=== PATIENT | female | born 1950 | race Caucasian/White ===

== ENCOUNTER 2019-12-28 14:58 | Outpatient (CLI) | payer OTHER, SELFPAY ==
[2019-12-28 17:09] LABS: Add Urine Microscopic? YES; Appearance Urine Clear (Clear); Bacteria Urine Trace /hpf; Bilirubin Urine Negative (Negative); Blood Urine Negative (Negative); Color Urine Yellow (Yellow); Glucose Urine UA Negative (Negative); Ketones Urine 1+ mg/dL (Negative); Leukocyte Esterase Ur 1+ LEU/UL (Negative); Mucus Urine Moderate /lpf; Nitrate Urine Negative (Negative); Protein Urine Negative (Negative); RBC Urine 0-2 /hpf (0-2); Specific Grav Ur 1.019 (1.001-1.035); Squamous Epithelial Cell Urine Rare /hpf (Few)
[2019-12-28 17:23] LABS: Basophils Percent Auto 0.4 % (0.2-1.2); Eosinophils Percent Auto 0.2 % (0-4.4); Hematocrit 39.6 % (37.0-47.0); Hemoglobin 12.6 g/dL (12.0-15.0); Immature Granulocyte Absolute 0.03 K/mm3 (0.00-0.031); Immature Granulocyte Percent A 0.4 % (0-0.5); Lymphocytes Absolute Auto 0.69 K/mm3 (0.9-3.2); Lymphocytes Percent Auto 8.6 % (18.3-44.2); Mean Corpuscular HGB Conc 31.8 g/dl (32-36); Mean Corpuscular Hemoglobin 28.5 pg (26-34); Mean Corpuscular Volume 89.6 fl (80-100); Mean Platelet Volume 12.6 fl (7.4-10.4); Monocytes Absolute Auto 0.5 K/mm3 (0.1-0.6); Monocytes Percent Auto 6.6 % (2.6-8.5); Neutrophils Absolute Auto 6.7 K/mm3 (1.3-6.7); Neutrophils Percent Auto 83.8 % (45.5-73.1); Platelet Count Result 195 k/mm3 (150-375); Red Blood Count 4.42 M/mm3 (4.2-5.4); Red Cell Distribution Width 15.1 % (11.5-14.5)
[2019-12-28 17:39] LABS: Alanine Aminotransferase 12 U/L (4-35); Albumin Level 4.4 g/dL (3.5-5.1); Alkaline Phosphatase 84 U/L (38-126); Aspartate Amino Transferase 22 U/L (14-36); Bilirubin,Total 0.7 mg/dL (0.2-1.3); Blood Urea Nitrogen 21 mg/dL (7-17); Calcium 9.5 mg/dL (8.4-10.2); Carbon Dioxide 26 mmol/L (22-30); Chloride 99 mmol/L (98-107); Estimated Glomerular Filt Rate > 60; Glucose 90 mg/dL (65-105); Magnesium 1.8 mg/dL (1.6-2.3); Potassium 4.1 mmol/L (3.4-5.0); Sodium 140 mmol/L (137-145)
[2019-12-28 18:24] LABS: Free T4 Free Thyroxine 1.45 ng/mL (0.78-2.19); Vitamin D 25 Hydroxy 82.4 ng/mL
[2019-12-28 18:42] LABS: Folic Acid 8.4 ng/mL (2.76->20)
[2020-01-02 03:17] LABS: Insulin Level Total 1.8 uIU/mL (<=19.6)
== END 2019-12-28 14:59 | disposition home or self-care (01) ==
DX: R09.89 Other specified symptoms and signs involving the circulatory and respiratory systems (principal); K90.9 Intestinal malabsorption, unspecified
CPT/HCPCS: 36415; 80053; 81001; 82306; 82607; 82746; 83525; 83735; 84439; 84443; 85025; 87086

== ENCOUNTER 2021-08-10 16:38 | Observation (INO) | payer OTHER, SELFPAY ==
--- NOTE | ~2021-08-10 | XR_ITS ---
EXAMINATION: XR chest 1V portable INDICATION: Shortness of breath TECHNIQUE: Portable AP chest at 1821 hours COMPARISON: 01/13/2013 FINDINGS: The lungs are free of acute opacities. There is no pleural effusion or pneumothorax. The ca rdiomediastinal silhouette is normal. A large volume of colonic stool is present. IMPRESSION: 1. No acute cardiopulmonary abnormality. Reviewed, dictated and finalized at location F. CARRIER
--- NOTE | ~2021-08-10 | CT_ITS ---
EXAMINATION: CT abdomen pelvis w con INDICATION: Abdominal pain TECHNIQUE: Computed tomographic images of the abdomen and pelvis were obtained after the administrati on of 100 cc of Omnipaque 350 intravenous contrast. The dose-length product (DLP) was 258.03 mGy-cm. Automated exposure control and iterative reconstruction technique were employed. COMPARISON: 07/21/2014 FINDINGS: Minimal dependent atelectasis is present in the lung bases. The heart size is normal. The l iver, spleen, pancreas, and adrenal glands are normal. The gallbladder is decompressed. There is a 3 mm nonobstructing stone of the right kidney. The left kidney is unremarkable. No pathologically enlar ged abdominal or pelvic lymph nodes are identified. There is a large volume of colonic stool distendi ng the entire colon. There is mild rectal wall thickening with edematous stranding of the adjacent pe rirectal fat. No free intraperitoneal gas is identified. There are bilateral L5 pars defects with gra de 1 anterolisthesis of L5 on S1. IMPRESSION: 1. Severe constipation. 2. Possible stercoral colitis of the rectum. Reviewed, dictated and finalized at location F. E PRESS OPERATOR
[2021-08-10 16:42] VITALS: BP 129/86; PULSE 90; RESP 16; TEMP 37.1; O2SAT 100
--- NOTE | 2021-08-10 16:52 | PC.NURSE ---
Patient's gave television script writer his cell phone to talk to patient's son, who is her caregiver. Patient's son Justino reported that the patient tries to convince people she is dying anytime he leaves or when she talks to her mother. Justino reported patient has bad anxiety and always states she can't breathe. Justino reports patient's oxygen saturations are never low when she says she can't breathe. Patient son also reported that when she talks to her mother, her mother convinces her that she needs to go to the hospital to be seen. Patient's oxygen saturations are 100% on room air and patient is able to speak in full, complete sentences. Patient shows no increased work of breathing. Nuclear Instructor informed, ADRIENNE Coombs of the information her son gave. Patient's son's phone number is [phone], Justino Ring
--- NOTE | 2021-08-10 17:58 | PC.NURSE ---
Pt states she has a little pain in her stomach and loses her breath when she lays down.
--- NOTE | 2021-08-10 18:13 | ECG_ITS ---
Measurements Intervals [place] Rate: 64 P: 60 WV: 133 QRS: -3 QRSD: 97 T: 50 QT: 398 QTc: 413 Interpretive Statements SINUS RHYTHM CONSIDER INFERIOR INFARCT, AGE INDETERMINATE BASELINE ARTIFACT- I, II, III, AVR, AVL, AVF, V1-V6 ABNORMAL ECG Electronically Signed On 08-10-2021 20:30:41 DOBIE MAN by Khalif Montalvo D.O.
[2021-08-10] MEDS: FAMOTIDINE 20 MG TABLET PO (18:26)
[2021-08-10 18:39] LABS: Basophils Percent Auto 0.4 % (0.2-1.2); Eosinophils Absolute Auto 0.1 K/mm3 (0-0.3); Eosinophils Percent Auto 1.2 % (0-4.4); Hematocrit 37.5 % (37.0-47.0); Hemoglobin 11.6 g/dL (12.0-15.0); Immature Granulocyte Absolute 0.03 K/mm3 (0.00-0.031); Immature Granulocyte Percent A 0.4 % (0-0.5); Lymphocytes Absolute Auto 1.75 K/mm3 (0.9-3.2); Lymphocytes Percent Auto 25.4 % (18.3-44.2); Mean Corpuscular HGB Conc 30.9 g/dl (32-36); Mean Corpuscular Hemoglobin 28.3 pg (26-34); Mean Corpuscular Volume 91.5 fl (80-100); Mean Platelet Volume 10.4 fl (7.4-10.4); Monocytes Absolute Auto 0.5 K/mm3 (0.1-0.6); Monocytes Percent Auto 6.5 % (2.6-8.5); Neutrophils Absolute Auto 4.6 K/mm3 (1.3-6.7); Neutrophils Percent Auto 66.1 % (45.5-73.1); Platelet Count Result 366 k/mm3 (150-375); Red Cell Distribution Width 15.2 % (11.5-14.5); White Blood Count 6.9 K/mm3 (4.5-10.0)
--- NOTE | 2021-08-10 18:52 | ED.GENADULT ---
HPI - General Adult General Chief complaint: Abdominal Pain Stated complaint: chills Time Seen by Provider: 08/10/21 16:52 Source: patient and family Mode of arrival: ambulatory Limitations: no limitations History of Present Illness HPI narrative: Pt presents for evaluation of abdominal pain. She and her , with whom she is with in the ED [facility], are extremely poor historians. Pt states she has a burning sensation in her abdomen. She cannot provide me with the duration of time with which she has experienced symptoms. She denies any nausea or vomiting. She has some chronic urinary incontinence, unchanged from her baseline. She states [facility] iboi-bxa-wutwyog inside of the body which is different from on the skin . She cannot tell me how long she has experienced these symptoms. She is currently on gabapentin and cannot tell me whether that medication has made much difference in the symptoms. She informs me that she feels SOB when laying down. She denies any cough, chest pain, fever or chills. Neither she nor her can provide me with much additional relevant information. Nursing staff spoke with pt's son via phone. Nursing staff inform me that he is patient's physical therapist and he keeps a close eye on her at home. Apparently when he leaves their place of residence, pt's anxiety increases and she requests medical examination. He states that patient will say she has difficulty breathing when she is anxious. This is not a new symptom for her. Related Data Home Medications Medication Instructions Recorded Confirmed atorvastatin 10 mg PO DAILY 08/10/21 08/10/21 diazepam 08/10/21 08/10/21 gabapentin 08/10/21 haloperidol 08/10/21 levothyroxine 08/10/21 mirtazapine mg 08/10/21 pantoprazole PO 08/10/21 quetiapine 08/10/21 venlafaxine mg 08/10/21 Allergies Allergy/AdvReac Type Severity Reaction Status Date / Time No Known Drug Allergies Allergy Mild Verified 11/28/14 11:51 Review of Systems Review of Systems: CONSTITUTIONAL: Denies fever, chills, or sweats. EYES: Denies visual changes, redness, or discharge. ENT: Denies rhinorrhea, congestion, sore throat, or otalgia. CARDIOVASCULAR: Denies chest pain, palpitations, or edema. RESPIRATORY: Reports SOB. Denies cough GASTROINTESTINAL: Reports burning sensation in abdomen. Denies nausea, vomiting, or diarrhea. GENITOURINARY: Reports episodes of urinary incontinence. Denies dysuria or hematuria. SKIN: Denies rash or itching. MUSCULOSKELETAL: Denies back pain, joint pain, or myalgia. NEUROLOGIC: Denies headache, numbness, dizziness, or weakness. PSYCHIATRIC: Denies anxiety or depression. PENDING SALE TO [facility] Past Medical History Medical History (Updated 08/10/21 @ 20:08 by АНДРЕЙ Lucero, ) Anxiety and depression History of heart attack History of kidney stones HLD (hyperlipidemia) Hypothyroidism Migraines Surgical History Surgical History History of tubal ligation Family History Family History Other Diabetes mellitus Family history of malignant neoplasm Family history of mental disorder Social History Social History Smoking status: Never smoker Alcohol intake: current Living arrangements: with family Gender identity (if verbalized by the patient): Female Sexual Orientation (if Verbalized by the Patient): Straight or Heterosexual Spiritual care concerns: No Exam Narrative: GENERAL: Well-appearing, well-nourished, and in no acute distress. HEAD: Normocephalic, atraumatic. EYES: PERRLA and EOMI. ENT: Nares clear, no rhinorrhea or epistaxis. Mucous membranes moist. Oropharynx without tonsillar hypertrophy exudate or other lesions. Bilateral TMs pearly lerner nonbulging NECK: Supple. No adenopathy or masses. No car
[2021-08-10 18:53] LABS: Alanine Aminotransferase 40 U/L (4-35); Alkaline Phosphatase 54 U/L (38-126); Anion Gap 6 mmol/L (8-16); Aspartate Amino Transferase 42 U/L (14-36); Bilirubin,Total 0.4 mg/dL (0.2-1.3); Blood Urea Nitrogen 16 mg/dL (7-17); Calcium 9.7 mg/dL (8.4-10.2); Carbon Dioxide 31 mmol/L (22-30); Chloride 103 mmol/L (98-107); Estimated CRCL calculation 49 ml/min; Estimated Glomerular Filt Rate > 60; Glucose 99 mg/dL (65-110); Lipase 79 U/L (23-300); Potassium 4.4 mmol/L (3.4-5.0); Sodium 140 mmol/L (137-145)
[2021-08-10 19:03] LABS: Troponin I < 0.012 ng/mL (0.000-0.034)
[2021-08-10 19:54] VITALS: BP 125/86; PULSE 96; RESP 18; O2SAT 99
--- NOTE | 2021-08-10 19:54 | PC.NURSE ---
pt cleansed of urinary and bowel incontinence. When asked about last BM at bedside states she went a lot two days ago. Pt is unable to recall.
[2021-08-10 20:03] LABS: Add Urine Microscopic? YES; Appearance Urine Cloudy (Clear); Bacteria Urine Trace /hpf; Bilirubin Urine Negative (Negative); Blood Urine 2+ (Negative); Color Urine Yellow (Yellow); Glucose Urine UA Negative (Negative); Ketones Urine Negative (Negative); Leukocyte Esterase Ur 3+ LEU/UL (Negative); Mucus Urine Rare /lpf; Nitrate Urine Negative (Negative); Protein Urine Negative (Negative); Urobilinogen Urine Negative mg/dL (<2.0); WBC Clumps Urine Present /HPF; WBC Urine >75 /hpf
[2021-08-10 20:04] LABS: Specific Grav Ur 1.036 (1.001-1.035)
[2021-08-10] MEDS: polyethylene glycoL 3350 17 GM POWD.PACK PO (20:10)
[2021-08-10 20:34] VITALS: BP 112/73; PULSE 70; RESP 18; O2SAT 98
[2021-08-10] MEDS: SODIUM CHLORIDE 0.9% IV 1,000 ML 125 ML IV CONT (20:51)
--- NOTE | 2021-08-10 21:06 | PM.IMHP ---
H&P: HPI History of Present Illness Date/Time: 08/10/21 21:06 Chief Complaint: Abdominal pain Narrative: 71-year-old female with past medical history of hypothyroidism, bipolar depression, anxiety, hyperlipidemia and GERD who presented to the ER with worsening burning and tingling pain over body and abdominal pain. I am assuming the patient has bipolar depression with psychosis given the medications she is on. However patient is quite confused. She is only alert oriented to person and the fact that she is in the hospital. She thinks the month is June and cannot give me the year. She thinks that she is at [facility]. She does know the name of the current president. She cannot tell me exactly why she came to the ER. The patient's was at bedside is also quite a poor historian and the patient's son was contacted by ER staff and could not provide much information. Evidently the patient and her live at home with her son as the patient's primary caregiver. That the patient has been in the wheelchair for at least 2 years since she was hospitalized at [facility]. Evidently during the hospitalization she almost twice but he cannot give me any details as to how she almost or what her actual diagnosis was. But he reports that the patient's legs have been stiff in that her feet have been inverted since that time. Patient has noticed spasticity of her upper extremities as well. From what I can tell the patient likely has a diagnosis of neuropathy and has sensation of pins and needle sensation all over body that is unchanged from baseline. However today see started complaining of a pins and needle sensation from the inside. She also was complaining of some abdominal pain but when I asked her what her symptoms or on presentation she did not mention abdominal pain. However, when I palpated her abdomen she stated that was part of why she came to the hospital. The patient's reports that the patient will usually leak a mushy stool when she is in her shower chair at home. She usually will leak a small amount every 3 days. He reports that a few days ago she passed a moderate-sized hard ball of stool. Evidently his, a week or so before that she had passed a markedly large ball of stool. She does not take any stool softeners at home but is evidently on some fiber tablets. Evidently during 1 of the patient's prior hospitalizations she had a colonoscopy but it was not a complete colonoscopy due to stool load. It sounds as if they may have tried to repeat the procedure after repeat prep and was still unsuccessful. Her reported the patient had some sort of scope where they found ulcers but is unclear if this was an EGD or colonoscopy. At the time of my evaluation patient was repetitively stating that she could not breathe. Her reports that she routinely says she cannot breathe. The patient's son reported to nursing staff that the patient becomes quite anxious any time she has to leave the home and panics and has trouble breathing. He evidently reported that the patient was not having difficulty breathing at home and was not vocalizing this. She has not had any cough or congestion. She has not had any fevers or chills. She has chronic urinary incontinence. On arrival to the medical floor the patient was quite anxious. Evidently any time the patient leaves home she becomes markedly anxious and reports difficulty breathing she was also demonstrating paranoia and was refusing oral cares she thought the nursing staff was trying to poison her. Review of Systems Review of Systems: 12 systems were reviewed with pertinent positives and negatives per HPI. Except as documented in the HPI, all other systems were reviewed and are negative. But, unfortunately patient has a poor historian and review of systems is unreliable. [facility] Past Medical History Medical History (Updated 08/10/21 @ 21:09 by Jackie Laureano
[2021-08-10 21:13] LABS: SARS-CoV-2 RNA PCR Negative
[2021-08-10 22:00] VITALS: BP 105/69; PULSE 80; RESP 17; TEMP 36.4; O2SAT 100
--- NOTE | 2021-08-10 22:00 | ADMGEN ---
This patient, Evelyn Ring, was admitted to Medical Room 244-. Patient/family oriented to hospital policies and general routines including ID bracelet, bed and alarms, visiting hours, pain management, procedures, bathroom and other care routines, personal items, smoking policy, room service/diet, and visiting hours. Information on how to activate the Rapid Response Team has been discussed. Patient/Family are encouraged to report perceived risks to care and to ask questions if they do not understand what they are told or what they should do.
[2021-08-10 22:18] VITALS: BMI 17.6
[2021-08-11] VITALS (8 sets, daily range): BP systolic 110–130; BP diastolic 56–76; PULSE 64–78; RESP 14–18; TEMP 35.9–36.7; O2SAT 93–100
[2021-08-11] MEDS: diazePAM (*CRX) 5 MG TABLET 10 MG PO ×2 (02:03→22:13)
[2021-08-11] MEDS: HALOPERIDOL 1 MG TABLET PO ×3 (02:21→17:29)
[2021-08-11] MEDS: MIRTAZAPINE 30 MG TABLET PO ×2 (02:22→22:13)
[2021-08-11] MEDS: VENLAFAXINE HCL 75 MG TABLET BY MOUTH ×4 (02:22→17:29)
[2021-08-11] MEDS: GABAPENTIN 300 MG CAPSULE PO ×4 (02:23→17:29)
[2021-08-11] MEDS: VENLAFAXINE HCL 25 MG TABLET PO ×4 (02:23→17:30)
[2021-08-11] MEDS: SODIUM CHLORIDE 0.9% IV 1,000 ML 125 ML IV CONT ×2 (05:35→13:46)
[2021-08-11] MEDS: LEVOTHYROXINE SODIUM 75 MCG TABLET PO (05:35)
[2021-08-11] MEDS: ONDANSETRON INJ 4 MG/2 ML VIAL IV PUSH (05:35)
[2021-08-11 06:15] LABS: Basophils Percent Auto 0.9 % (0.2-1.2); Eosinophils Absolute Auto 0.1 K/mm3 (0-0.3); Eosinophils Percent Auto 2.1 % (0-4.4); Hematocrit 34.1 % (37.0-47.0); Hemoglobin 10.6 g/dL (12.0-15.0); Immature Granulocyte Absolute 0.02 K/mm3 (0.00-0.031); Immature Granulocyte Percent A 0.4 % (0-0.5); Lymphocytes Absolute Auto 1.78 K/mm3 (0.9-3.2); Lymphocytes Percent Auto 38.2 % (18.3-44.2); Mean Corpuscular HGB Conc 31.1 g/dl (32-36); Mean Corpuscular Hemoglobin 28.3 pg (26-34); Mean Corpuscular Volume 90.9 fl (80-100); Monocytes Absolute Auto 0.4 K/mm3 (0.1-0.6); Monocytes Percent Auto 8.6 % (2.6-8.5); Neutrophils Absolute Auto 2.3 K/mm3 (1.3-6.7); Neutrophils Percent Auto 49.8 % (45.5-73.1); Platelet Count Result 306 k/mm3 (150-375); Red Blood Count 3.75 M/mm3 (4.2-5.4); Red Cell Distribution Width 15.2 % (11.5-14.5); White Blood Count 4.7 K/mm3 (4.5-10.0)
[2021-08-11 06:24] LABS: Anion Gap 5 mmol/L (8-16); Blood Urea Nitrogen 12 mg/dL (7-17); Calcium 7.1 mg/dL (8.4-10.2); Carbon Dioxide 25 mmol/L (22-30); Chloride 112 mmol/L (98-107); Estimated CRCL calculation 52 ml/min; Estimated Glomerular Filt Rate > 60; Glucose 79 mg/dL (65-110); Potassium 3.4 mmol/L (3.4-5.0); Sodium 142 mmol/L (137-145)
[2021-08-11] MEDS: calcium polycarbophiL 625 MG TABLET 1250 MG PO ×2 (09:44→17:29)
[2021-08-11] MEDS: MIRTAZAPINE 15 MG TABLET PO (09:45)
[2021-08-11] MEDS: PANTOPRAZOLE 40 MG TABLET PO (09:45)
[2021-08-11] MEDS: ATORVASTATIN 10 MG TABLET PO (09:46)
[2021-08-11] MEDS: QUEtiapine FUMARATE 100 MG TABLET 300 MG PO (09:46)
[2021-08-11] MEDS: polyethylene glycoL 3350 17 GM POWD.PACK PO (09:46)
[2021-08-11] MEDS: ENOXAPARIN 40 MG/0.4 ML SYRINGE SUB-Q (09:47)
[2021-08-11] MEDS: diazePAM (*CRX) 5 MG TABLET PO ×3 (10:00→17:29)
--- NOTE | 2021-08-11 11:06 | PM.IMPN ---
Progress Note: A&P Assessment and Plan (1) Fecal impaction: Code(s): K56.41 - Fecal impaction Status: Acute Assessment and Plan: CT shows large volume of colonic stool distending the entire colon with rectal wall thickening Soapsuds enema administered on presentation She has had small stool output but so far nothing significant Continue with Miralax BID Add dulcolax suppository Repeat soapsuds enema Monitor stool output Clear liquid diet (2) Stercoral colitis: Code(s): K52.89 - Other specified noninfective gastroenteritis and colitis Status: Acute Assessment and Plan: CT suggests rectal wall thickening with edematous stranding, possible stercoral colitis of the rectum Plan as above (3) Bacteriuria with pyuria: Code(s): R82.71 - Bacteriuria; R82.81 - Pyuria Status: Acute Assessment and Plan: Patient denies symptoms Urine cultures pending Continue IV Rocephin while awaiting results and tailor antibiotics accordingly Subjective Date/time seen: 08/11/21 11:06 Interval history: Date of service: 08/11/2021 Evelyn Ring is a 71-year-old female with a history of CAD, hyperlipidemia, hypothyroidism, osteoporosis who is seen in follow-up for fecal impaction. She is doing okay today. She is a poor historian. She can state her name. She knows she is in the hospital but does not know the name of the hospital, thinks she is in [place] states the year is 220, cannot state the month. She states she needs to go to the bathroom. She denies abdominal pain. She cannot state if she has had a bowel movement. Denies nausea or vomiting. She has not had anything to eat. She denies shortness of breath, cough, chest pain, dizziness, lightheadedness. Spoke with her ORDER PULLER reports that she has had no stool output today. Last night had minimal stool output nothing significant. Review of Systems Review of Systems: All systems reviewed & are unremarkable except as noted in HPI and below Exam Narrative: General: Well-nourished, chronically ill-appearing 71 year-old female, lying supine in bed in contracted position, appears comfortable, NARD Neuro: awake, alert and oriented x2, able to follow commands and identify simple objects, speech clear, upper and lower extremities are contracted with her legs firmly crossed, bilateral meter tester polyphase strength equal HEENMT: normocephalic, atraumatic, EOMI, sclerae anicteric Respiratory: clear to auscultation bilaterally, nonlabored breathing Cardio: regular rate, regular rhythm with S1-S2 Abdomen: nondistended, normoactive bowel sounds, soft, nontender to palpation : Wearing depends Extremities: no edema, erythema, or tenderness to palpation, able to wiggle toes bilaterally, DP pulses 2+ bilaterally Skin: no rashes or lesions, warm and dry Psych: appropriate mood and affect, judgment and insight fair Objective Data Vital Signs Vital Signs: Vital Signs - 24 hr 08/10/21 16:42 08/10/21 19:54 08/10/21 20:34 Temperature 98.7 F Pulse Rate 90 96 70 Respiratory Rate 16 18 18 Blood Pressure 129/86 125/86 112/73 Pulse Oximetry 100 99 98 08/10/21 22:00 08/11/21 01:00 08/11/21 04:00 Temperature 97.5 F L 97.7 F 97.5 F L Pulse Rate 80 68 78 Respiratory Rate 17 16 17 Blood Pressure 105/69 123/72 130/76 Pulse Oximetry 100 98 96 08/11/21 06:00 08/11/21 10:25 Temperature 97.5 F L 98.1 F Pulse Rate 78 73 Respiratory Rate 17 14 Blood Pressure 130/76 112/64 Pulse Oximetry 96 94 Intake/Output Intake/Output: Intake & Output 08/08/21 08/09/21 08/10/21 08/11/21 23:59 23:59 23:59 23:59 Intake Total 50 1200 Balance 50 1200 Meds/Results Medications: Active Medications Generic Name Dose Route Start Last Admin Trade Name Freq PRN Reason Stop Dose Admin Atorvastatin Calcium 10 mg 08/11/21 09:00 08/11/21 09:46 Atorvastatin 10 Mg Tablet PO 10 mg DAILY ABEL Administration Calcium Polycarbophil 1,250 m
--- NOTE | 2021-08-11 12:06 | PCDIET ---
Dietitian Screen for BMI: 17.7. Spoke with nursing today regarding patient. She did refuse breakfast. Diet orders are currently for clear liquids. Ensure Clear will be added to trays providing an additional 240 kcals and [address] will continue to monitor intake and diet orders for additional needs.
[2021-08-11] MEDS: BISACODYL 10 MG SUPPOSITORY RECTAL (14:35)
--- NOTE | 2021-08-11 14:40 | WPDGICN ---
Assessment and Plan Assessment and plan (1) Fecal impaction: Code(s): K56.41 - Fecal impaction Status: Acute Assessment and Plan: continue with bowel regimen will try to assess tomorrow with colonoscopy, most likely she won't be clear but still will be helpful to assess rectosigmoid and also disimpaction of possible fecaloma (2) Stercoral colitis: Code(s): K52.89 - Other specified noninfective gastroenteritis and colitis Status: Acute Assessment and Plan: will assess with colonoscopy continue with bowel regimen (3) Constipation: Qualifiers: Constipation type: other constipation type Qualified Code(s): K59.09 - Other constipation Code(s): K59.00 - Constipation, unspecified Status: Acute (4) Anxiety and depression: Code(s): F41.9 - Anxiety disorder, unspecified; F32.9 - Major depressive disorder, single episode, unspecified Status: Acute (5) Bacteriuria with pyuria: Code(s): R82.71 - Bacteriuria; R82.81 - Pyuria Status: Acute Assessment and Plan: started on abx GI Consult Note Consult date/time: 08/11/21 14:40 Reason for consult: constipation, possible stercoral colitis of the rectum. HPI: Evelyn Ring is a 71 year old female with history of bipolar disorder with psych features on medication. She is poor historian, awake and alert but can not give good history, only to person and somehow to place. Most of the history from records. She also constipation and apparently during previous hospitalizations unable to completely perform colonoscopy because large amount of stool in colon. She was brought here because she was acting more anxious than usual and started complaining of some vague abdominal discomfort. CT scan a/p reviewed that showed severe constipation, possible stercoral colitis of the rectum. Given enema and bowel regimen, RN reports that had some BM. Patient is lying comfortable in bed but hardly participating to conversation. Review of Systems Constitutional: Constitutional: Denies chills Eyes: Eyes: Reports no additional eye complaints ENT: Reports Normal hearing present Cardiovascular: Cardiovascular: Denies chest pain Respiratory: Respiratory: Denies dyspnea Gastrointestinal: Gastrointestinal: Reports abdominal pain and Reports constipation Genitourinary: Genitourinary: Denies hematuria Musculoskeletal: Musculoskeletal: Denies neck pain Integumentary/Breasts: Skin/Breast: Denies dry skin Neurologic: Reports confusion Psychiatric: Psychiatric: Reports anxiety and Reports confusion [facility] Past Medical History Medical History (Updated 08/11/21 @ 11:31 by Padmini Bradshaw PA-C) Anxiety and depression History of heart attack History of kidney stones HLD (hyperlipidemia) Hypothyroidism Migraines Osteoporosis Urinary incontinence Surgical History Surgical History (Updated 08/11/21 @ 03:13 by Jackie Somers DO) History of right cataract extraction History of tubal ligation Family History Family History Sibling Colon cancer Father Pancreatic cancer Mother Diabetes mellitus Other Family history of mental disorder Social History Social History Social History: She is . She is a lifelong nonsmoker and denies alcohol use. Smoking status: Never smoker Alcohol intake: never Substance use: never Substance use type: does not use Living arrangements: with family Gender identity (if verbalized by the patient): Female Sexual Orientation (if Verbalized by the Patient): Straight or Heterosexual Spiritual care concerns: No Meds Home Medications and Allergies Home Medications Medication Instructions Recorded Confirmed Type atorvastatin 10 mg PO DAILY 08/10/21 08/10/21 History diazepam 5 mg PO TID 08/10/21 08/10/21 History diazepam 10 mg P
[2021-08-11] MEDS: PEG (High)/E-LYTE SOLN 4,000 ML BTL 4000 ML PO (17:20)
[2021-08-11] MEDS: BISACODYL 5 MG TABLET EC 20 MG PO (17:29)
[2021-08-11] MEDS: SODIUM CHLORIDE 0.9% IV 1,000 ML 75 ML IV CONT (22:54)
[2021-08-12] VITALS (9 sets, daily range): BP systolic 104–140; BP diastolic 52–75; PULSE 66–91; RESP 15–24; TEMP 35.9–36.9; O2SAT 93–100
[2021-08-12] MEDS: MAGNESIUM CITRATE 300 ML BTL PO (02:13)
[2021-08-12 05:51] LABS: Hematocrit 35.5 % (37.0-47.0); Mean Corpuscular Hemoglobin 28.4 pg (26-34); Mean Corpuscular Volume 91.5 fl (80-100); Mean Platelet Volume 10.5 fl (7.4-10.4); Platelet Count Result 330 k/mm3 (150-375); Red Blood Count 3.88 M/mm3 (4.2-5.4); Red Cell Distribution Width 15.1 % (11.5-14.5)
[2021-08-12 06:07] LABS: Anion Gap 7 mmol/L (8-16); Blood Urea Nitrogen 10 mg/dL (7-17); Calcium 8.3 mg/dL (8.4-10.2); Carbon Dioxide 27 mmol/L (22-30); Chloride 108 mmol/L (98-107); Estimated CRCL calculation 45 ml/min; Estimated Glomerular Filt Rate > 60; Glucose 91 mg/dL (65-110); Sodium 142 mmol/L (137-145)
[2021-08-12] MEDS: LACTATED RINGERS 1,000 ML 150 ML IV CONT (10:01)
--- NOTE | 2021-08-12 10:04 | WPDANESEPPF ---
Anes - Initial Pre Proc Eval Procedure: Operation Date: 08/12/21 12:00 Proposed Procedures p Colonoscopy - Abdulkadir Palomino MD Date/Time: 08/12/21 10:04 Surgeon: Padmini Bradshaw PA-C Pre Op Diagnosis: Constipation, Stercoral Colitis Patient Data Age: 71 Gender: F Height: 1.6 m Weight: 45.3 kg Last Vital Signs Temp 98.4 F 08/12/21 09:32 Pulse 72 08/12/21 09:32 Resp 15 08/12/21 09:32 BP 108/59 L 08/12/21 09:32 Pulse Ox 96 08/12/21 09:32 Allergies Allergy/AdvReac Type Severity Reaction Status Date / Time No Known Drug Allergies Allergy Mild Unknown Verified 08/12/21 09:30 Home Medications Medication Instructions Recorded Confirmed Type atorvastatin 10 mg PO DAILY 08/10/21 08/10/21 History diazepam 5 mg PO TID 08/10/21 08/10/21 History diazepam 10 mg PO HS 08/10/21 08/10/21 History gabapentin 300 mg PO TID 08/10/21 08/10/21 History haloperidol 1 mg PO BID 08/10/21 08/10/21 History levothyroxine 75 mcg PO DAILY 08/10/21 08/10/21 History mirtazapine 15 mg PO DAILY 08/10/21 08/10/21 History mirtazapine 30 mg PO HS 08/10/21 08/10/21 History pantoprazole 40 mg PO DAILY 08/10/21 08/10/21 History quetiapine 300 mg PO DAILY 08/10/21 08/10/21 History venlafaxine 100 mg PO TID 08/10/21 08/10/21 History Laboratory Tests 08/12/21 08/12/21 05:20 05:20 WBC 7.0 K/mm3 K/mm3 (4.5-10.0) RBC 3.88 M/mm3 L M/mm3 (4.2-5.4) Hgb 11.0 g/dL L g/dL (12.0-15.0) Hct 35.5 % L % (37.0-47.0) MCV 91.5 fl fl (80-100) MCH 28.4 pg pg (26-34) MCHC 31.0 g/dl L g/dl (32-36) RDW 15.1 % H % (11.5-14.5) Plt Count 330 k/mm3 k/mm3 (150-375) MPV 10.5 fl H fl (7.4-10.4) Sodium 142 mmol/L mmol/L (137-145) Potassium 4.0 mmol/L mmol/L (3.4-5.0) Chloride 108 mmol/L H mmol/L (98-107) Carbon Dioxide 27 mmol/L mmol/L (22-30) Anion Gap 7 mmol/L L mmol/L (8-16) BUN 10 mg/dL mg/dL (7-17) Creatinine 0.70 mg/dL mg/dL (0.7-1.0) Estim Creat Clear Calc 45 ml/min ml/min Estimated GFR > 60 (59 - ) Glucose 91 mg/dL mg/dL (65-110) Calcium 8.3 mg/dL L mg/dL (8.4-10.2) Patient hx anesthesia problems: none Family hx anesthesia problems: none Results Review: All pre-operative results and documents have been reviewed as part of the pre-operative evaluation. [facility] Past Medical History Medical History (Updated 08/11/21 @ 11:31 by Padmini Bradshaw PA-C) Anxiety and depression History of heart attack History of kidney stones HLD (hyperlipidemia) Hypothyroidism Migraines Osteoporosis Urinary incontinence Surgical History Surgical History (Updated 08/11/21 @ 03:13 by Jackie Somers DO) History of right cataract extraction History of tubal ligation Family History Family History Sibling Colon cancer Father Pancreatic cancer Mother Diabetes mellitus Other Family history of mental disorder Social History Social History Social History: She is . She is a lifelong nonsmoker and denies alcohol use. Smoking status: Never smoker Alcohol intake: never Substance use: never Substance use type: does not use Living arrangements: with family Gender identity (if verbalized by the patient): Female Sexual Orientation (if Verbalized by the Patient): Straight or Heterosexual Spiritual care concerns: No Anes - Eval Final PreProcedure Day of Procedure 08/12/21 10:04 Patient weight: normal Heart: regular rate and rhythm Lungs: clear to auscultation Airway: Mallampati scale class II Neurological: alert and oriented Last oral intake: >/= 8 hours ASA classification: III Emergent: no Anesthetic plan: proceed Anesthesia type and monitoring: general GIVS and standard monitoring Results Review
[2021-08-12] MEDS: ATORVASTATIN 10 MG TABLET PO (11:40)
[2021-08-12] MEDS: calcium polycarbophiL 625 MG TABLET 1250 MG PO (11:40)
[2021-08-12] MEDS: MIRTAZAPINE 15 MG TABLET PO (11:41)
[2021-08-12] MEDS: VENLAFAXINE HCL 75 MG TABLET BY MOUTH (11:41)
[2021-08-12] MEDS: VENLAFAXINE HCL 25 MG TABLET PO (11:41)
[2021-08-12] MEDS: HALOPERIDOL 1 MG TABLET PO (11:41)
[2021-08-12] MEDS: PANTOPRAZOLE 40 MG TABLET PO (11:41)
[2021-08-12] MEDS: polyethylene glycoL 3350 17 GM POWD.PACK PO (11:42)
[2021-08-12] MEDS: ENOXAPARIN 40 MG/0.4 ML SYRINGE SUB-Q (11:42)
[2021-08-12] MEDS: QUEtiapine FUMARATE 100 MG TABLET 300 MG PO (11:42)
[2021-08-12] MEDS: GABAPENTIN 300 MG CAPSULE PO (11:42)
[2021-08-12] MEDS: diazePAM (*CRX) 5 MG TABLET PO (11:52)
--- NOTE | 2021-08-12 14:18 | PM.DS ---
DS: Admitting Diagnosis Discharge Date 08/12/2021 Admitting Diagnosis Fecal impaction DS: Discharge Diagnosis Discharge Diagnosis (1) Fecal impaction: Code(s): K56.41 - Fecal impaction Status: Acute Assessment and Plan: CT showed large volume of colonic stool distending the entire colon with rectal wall thickening Patient received soapsuds enema, MiraLax, Dulcolax Seen in consultation by Gastroenterology Underwent colonoscopy on 08/12/2021 in which large amount of impacted stool was visualized and manually removed and irrigated. This resolved the impaction She needs to remain on a bowel regimen. Discussed with the patient's son who is her primary caregiver who reports that she has had issues with constipation for quite some time. He states the patient will not be agreeable to MiraLax and does better with pills. She will take senna-docusate daily and use Dulcolax suppository as needed with goal of having a bowel movement every 1-2 days Continue fiber supplement Diet was able to be advanced and patient had symptomatic improvement (2) Stercoral colitis: Code(s): K52.89 - Other specified noninfective gastroenteritis and colitis Status: Acute Assessment and Plan: Ruled out. CT suggests rectal wall thickening with edematous stranding, possible stercoral colitis of the rectum No evidence of colitis on colonoscopy (3) Urinary tract infection: Code(s): N39.0 - Urinary tract infection, site not specified Status: Acute Assessment and Plan: Patient's son reports recurrent UTI She had completed a 3 day course of a cephalosporin (unsure which) just a few days prior to presentation Urinalysis on presentation was abnormal the patient denies symptoms Urine culture with growth of 50 to 100k Proteus mirabilis despite recent completion of antibiotic course She received IV Rocephin during admission and will continue p.o. cefdinir as an outpatient to complete a 7 day course Susceptibilities are pending and patient's son was informed that should these antibiotics be inappropriate based on results, he will be contacted and antibiotics will be changed. Given the patient's anxiety related to hospitalization, felt patient would tolerate being at home better than staying in the hospital another night to await susceptibility report. Son in agreement with plan DS: Summary Hospital Course Hospital Course: Date of admission: 08/10/2021 Date of discharge: 08/12/2021 Evelyn Ring is a 71-year-old female with a history of CAD, hyperlipidemia, hypothyroidism, osteoporosis, anxiety, depression who presented to the emergency department on 08/10/2021 with complaints of abdominal pain ongoing for 1 day. Patient found to have fecal impaction and was admitted to the hospitalist service for further evaluation and management, seen in consultation by Gastroenterology. Please see above for further details. Impaction was resolved following colonoscopy. Patient was acutely anxious related to hospitalization and did not like being alone in the hospital. Following resolution of the impaction, it was determined that she no longer required inpatient care and was felt to be stable for discharge home which would improve her anxiety symptoms. Patient will continue oral antibiotics for UTI and her son will be contacted should any changes be required. I discussed with the patient's son via phone to review the patient's course of hospitalization and discharge instructions. He is the primary caregiver and felt comfortable with plans for discharge home. He is aware of importance of implementing bowel regimen. He will arrange outpatient follow-up with patient's PCP. The patient was discharged in hemodynamically stable condition on 08/12/2021. Status at Discharge Overall status at discharge: patient is back to baseline Time Spent with Patient Time attestation: Total time spent providing and/or coordinating discha
--- NOTE | 2021-08-13 11:12 | WPDANESPN ---
Anes - Prog Note Post-Op Date/Time: 08/13/21 11:12 Cardiovascular status: normal Respiratory status: normal Airway patency: baseline Mental status: baseline Post-Op hydration status: normal Vital Signs: Last Vital Signs Temp 36.2 C L 08/12/21 14:15 Pulse 87 08/12/21 14:15 Resp 16 08/12/21 14:15 BP 110/56 L 08/12/21 14:15 Pulse Ox 99 08/12/21 14:15 Pain Score (VAS): 0 I/O: Intake & Output 08/12/21 08/13/21 08/13/21 23:59 07:59 15:59 Intake Total 50 Balance 50 Laboratory Tests 08/12/21 05:20 08/12/21 05:20 Microbiology 08/10/21 19:35 Urine Clean Catch Urine Culture - Final Proteus Mirabilis Post-procedural complaints: none Patient Feedback: Patient satisfied with anesthetic care.
== END 2021-08-12 16:45 | disposition home or self-care (01) ==
LOC: ANHED 20:23 → ANH2MED 21:27
PROVIDERS: Internal Medicine Gastroenterology; Admitting Provider Internal Medicine; Emergency Provider Nurse Practitioner; PCP Internal Medicine; Visit Provider Physician Assistant
PROC: 0DJD8ZZ Inspection of Lower Intestinal Tract, Via Natural or Artificial Opening Endoscopic (ICD-10-PCS; CPT 45378; principal; 2021-08-12 12:00)
DX: K56.41 Fecal impaction (principal); K52.89 Other specified noninfective gastroenteritis and colitis; N39.0 Urinary tract infection, site not specified; B96.4 Proteus (mirabilis) (morganii) as the cause of diseases classified elsewhere; R06.00 Dyspnea, unspecified; R32 Unspecified urinary incontinence; E78.5 Hyperlipidemia, unspecified; E03.9 Hypothyroidism, unspecified; I25.2 Old myocardial infarction; F31.9 Bipolar disorder, unspecified; F41.9 Anxiety disorder, unspecified; K21.9 Gastro-esophageal reflux disease without esophagitis; Z99.3 Dependence on wheelchair; Z20.822 Contact with and (suspected) exposure to COVID-19
CPT/HCPCS: 45330; 36415; 71045; 74177; 80048; 80053; 81001; 83690; 84484; 85025; 85027; 87077; 87086; 87186; 93005; 96361; 96365; 96372; 96375; 96376; 99285; A9270; C9803; G0378; J0696; J1650; J2405; J2704; J7030; J7120; Q9967; U0003; U0005